=== PATIENT | female | born 1995 | race African-American/Black ===

== ENCOUNTER 2018-07-22 21:21 | Emergency (ER) | payer MEDICAID ==
[~2018-07-22] VITALS: Ht 162.6 cm; Wt 85.0 kg
[2018-07-22 21:42] VITALS: BP 146/80
[2018-07-22] MEDS ORDERED: METF-414 MT (21:52)
== END 2018-07-22 23:45 | disposition left against medical advice (07) ==
LOC: ER 21:21
DX: R10.9 Unspecified abdominal pain (principal); Z53.21 Procedure and treatment not carried out due to patient leaving prior to being seen by health care provider
CPT/HCPCS: 82962